=== PATIENT | female | born 1955 | race Caucasian/White ===

== ENCOUNTER 2017-02-17 09:43 | Emergency (ER) | payer OTHER ==
--- NOTE | ~2017-02-17 | EKG ---
PATIENT: JOLIE CHEN UNIT #: [id number] Ventricular Rate: 79 BPM Atrial Rate: 79 BPM P-R Interval: 162 ms QRS Duration: 72 ms Q-T Interval: 368 ms QTC Calculation(Bezet): 421 ms P [place]: 5 degrees Calculated R [place]: 21 degrees Calculated T [place]: 45 degrees Diagnosis Line: Normal sinus rhythm Diagnosis Line: Normal ECG Diagnosis Line: No previous ECGs available Diagnosis Line: Confirmed by DRAKE CHE MD ([id number]) on 02/19/2017 Diagnosis Line: 10:20:47 AM INTERPRETING MD: YANE GALARZA
[~2017-02-17 09:43] MED LIST: ALBUTEROL17 GM INH; ALBUTEROL2.5 MG/0.5 IH; AVELOX400 M1 PO; PREDNISONE PO; SINGULAIR PO; VIBRAMYCIN100 M1 PO
[2017-02-17] MEDS ORDERED: BREO ELLIPTA 11 EACH (09:48)
[2017-02-17 10:25] LABS: BASOPHIL# 0.1 X10e3 (0-0.3); BASOPHIL% 1.5 % (0-2.5); EOSINOPHIL# 0.1 X10e3 (0-0.7); EOSINOPHIL% 1.9 % (0.0-7.0); HEMATOCRIT 40.4 % (35.0-45.0); HEMOGLOBIN 14.1 gm/dL (12.0-16.0); LYMPHOCYTE# 1.7 X10e3 (1.0-3.5); LYMPHOCYTE% 22.2 % (17.0-45.0); MEAN CELL VOLUME 83.4 FL (83-96); MEAN CORPUSCULAR HEMOGLOBIN 29.2 PG (28-34); MEAN PLATELET VOLUME 8.7 FL (6.5-11.5); MONOCYTE# 0.5 X10e3 (0-1.0); MONOCYTE% 6.3 % (3.0-12.0); NEUTROPHIL# 5.2 X10e3 (1.5-7.1); NEUTROPHIL% 68.1 % (40-75); PLATELET COUNT 295 X10e3 (140-420); RED BLOOD COUNT 4.84 X10e (3.90-5.30); WHITE BLOOD COUNT 7.6 X10e3 (4.0-10.5)
[2017-02-17 10:29] LABS: DIFF IND NO
[2017-02-17 10:42] LABS: BUN/CREATININE RATIO 23.75; CREATININE SERUM 0.8 mg/dL (0.6-1.4); GLOM FILT RATE Estimated 80.8 mL/min (>60); POTASSIUM 3.7 mmol/L (3.5-5.1)
[2017-02-17 10:50] LABS: URINE SOURCE CLEAN CATCH
[2017-02-17 10:52] LABS: URINE APPEARANCE CLEAR; URINE BILIRUBIN NEG (NEG); URINE BLOOD NEG (NEG); URINE COLOR YELLOW; URINE GLUCOSE 300 MG/DL (NORM); URINE KETONE TRACE (NEG); URINE LEUKOCYTE ESTERASE NEG (NEG); URINE NITRATE NEG (NEG); URINE PH 5.5 (5-8); URINE PROTEIN NEG (NEG)
[2017-02-17 10:57] LABS: MICRO INDICATED? NO
[2017-02-17] MEDS ORDERED: ANTIVERT PO (11:26)
[2017-02-17] MEDS ORDERED: GLUCOPHAGE500 MG PO (11:26)
== END 2017-02-17 11:30 | disposition home or self-care (01) ==
LOC: SED 09:43
PROVIDERS: Emergency Medicine
DX: H61.22 Impacted cerumen, left ear (principal); H81.11 Benign paroxysmal vertigo, right ear; R73.9 Hyperglycemia, unspecified; Z79.84 Long term (current) use of oral hypoglycemic drugs; Z79.899 Other long term (current) drug therapy
CPT/HCPCS: 36415; 80048; 81003; 85025; 93005; 99283